=== PATIENT | male | born 1995 | race Caucasian/White ===

== ENCOUNTER 2017-06-14 20:21 | Emergency (ER) | payer BC ==
[~2017-06-14] VITALS: Ht 175.3 cm; Wt 90.0 kg
[~2017-06-14 20:21] MED LIST: IBUP600T26 PO; ROBA750T3 PO
[2017-06-14 20:33] VITALS: BP 139/81; PULSE 76; RESP 18; TEMP 98.4; O2SAT 98
[2017-06-14] MEDS ORDERED: NEFA100 PO (23:09)
[2017-06-14] MEDS ORDERED: CLON1TAB PO (23:09)
[2017-06-14] MEDS ORDERED: DULO1CAP3 PO (23:09)
[2017-06-14] MEDS ORDERED: MELA5 PO (23:09)
--- NOTE | 2017-06-14 23:12 | RADRPT ---
EXAM DATE/TIME: 06/14/2017 22:24 [place] COMPARISON: No previous studies available for comparison. INDICATIONS : Testicle pain. MEDICAL HISTORY : Testicle pain. Anxiety. SURGICAL HISTORY : None. ENCOUNTER: Initial ACUITY: 1 day PAIN SCORE: 7/10 LOCATION: Bilateral testicle. MEASUREMENTS: RIGHT TESTICLE: 4.8 x 1.4 x 2.2cm LEFT TESTICLE: 4.6 x 2.6 x 2.3cm FLOW: Yes FINDINGS: RIGHT TESTICLE: Homogeneous echotexture without intra or extratesticular mass. Blood flow is symmetric and within no rmal limits. No hydrocele or varicocele. Epididymis is within normal limits. LEFT TESTICLE: Homogeneous echotexture without intra or extratesticular mass. Blood flow is symmetric and within no rmal limits. No hydrocele or varicocele. Epididymis is within normal limits. SCROTUM: Within normal limits. CONCLUSION: Normal examination. Flash Brunner MD on June 14, 2017 at 23:10 Board Certified Radiologist. This report was verified electronically.
[2017-06-15] MEDS ORDERED: cefTRIAXone 250 MG VIAL IM ONE (00:15)
[2017-06-15] MEDS ORDERED: IBUPROFEN 600 MG TAB PO ONE (00:15)
[2017-06-15] MEDS ORDERED: AZITHROMYCIN PWD FOR SUSP 1 GM PACKET PO ONE (00:15)
[2017-06-15] MEDS ORDERED: LIDOCAINE HCL 1% 50 ML VIAL XX ONE (00:15)
[2017-06-15] MEDS ORDERED: LIDOCAINE HCL 1% 20 ML VIAL ONE (00:20)
[2017-06-15 00:24] LABS: BILIRUBIN, URINE NEG (NEG); BLOOD, URINE NEG (NEG); GLUCOSE,URINE NEG (NEG); KETONE, URINE NEG (NEG); NITRITE,URINE NEG (NEG); URINE COLOR LIGHT-YELLOW (YELLW/STRAW); URINE LEUKOCYTE ESTERASE NEG (NEG)
[2017-06-15] MEDS ORDERED: TYLE325T PO (01:01)
--- NOTE | 2017-06-15 01:01 | PD ---
HPI Chief Complaint: Pain: Acute or Chronic Time Seen by Provider: 22:50 Travel History International Travel<30 days: No Contact w/Intl Traveler<30days: No Traveled to known affect area: No History of Present Illness HPI 22yo M with no PMH presents to the ED with c/o bilateral testicular pain and penile pain for 1 week. Said he had protected sexual intercourse 1 week ago. Pt went to urgent care and was sent here for US. Denies any fever, chest pain, sob, n/v, abdominal pain, trauma to testicles, penile discharge. PFSH Past Medical History Anxiety: Yes Pneumonia: Yes Past Surgical History Surgical History: No Previous Surgery Social History Alcohol Use: No Tobacco Use: No Substance Use: No Allergies-Medications (Allergen,Severity, Reaction): Coded Allergies: No Known Allergies (Unverified Adverse Reaction, Unknown, 06/14/17) Reported Meds & Prescriptions Reported Meds & Active Scripts Active Reported Melatonin 5 Mg Tab 3 Mg PO HS Nefazodone (Nefazodone HCl) 100 Mg Tab 100 Mg PO BID Duloxetine DR (Duloxetine HCl) 60 Mg Capdr 60 Mg PO DAILY Clonazepam 1 Mg Tab 1 Mg PO TID Review of Systems Except as stated in HPI: all other systems reviewed are Neg Physical Exam Narrative GENERAL: 22yo M not in distress. SKIN: Focused skin assessment warm/dry. HEAD: Atraumatic. Normocephalic. CARDIOVASCULAR: Regular rate and rhythm. No murmur appreciated. RESPIRATORY: No accessory muscle use. Clear to auscultation. Breath sounds equal bilaterally. GASTROINTESTINAL: Abdomen soft, non-tender, nondistended. No rebound tenderness or guarding. : No edema or erythema of penile shaft. Bilateral testes descended. No edema. Mild ttp bilateral testes. No penile discharge on rash on shaft of penis. MUSCULOSKELETAL: No obvious deformities. No clubbing. No cyanosis. No edema. NEUROLOGICAL: Awake and alert. No obvious cranial nerve deficits. Motor grossly within normal limits. Normal speech. PSYCHIATRIC: Appropriate mood and affect; insight and judgment normal. Data Data Last Documented VS Vital Signs Date Time Temp Pulse Resp B/P (MAP) Pulse Ox O2 Delivery O2 Flow Rate FiO2 06/14/17 20:33 98.4 76 18 139/81 (100) 98 Orders Orders Us Testicles W Doppler (06/14/17 ) Urinalysis - C+S If Indicated (06/15/17 00:03) Gc And Chlamydia Pcr (06/15/17 00:03) Azithromycin Powd Pack (Zithromax Powd P (06/15/17 00:15) Ceftriaxone Inj (Rocephin Inj) (06/15/17 00:15) Lidocaine 1% Inj (50 Ml) (Xylocaine 1% I (06/15/17 00:15) Ibuprofen (Motrin) (06/15/17 00:15) Lidocaine 1% Inj (Xylocaine 1% Inj) (06/15/17 00:20) Labs Laboratory Tests Test 06/15/17 00:15 Urine Color LIGHT-YELLOW Urine Turbidity CLEAR Urine pH 7.0 Urine Specific [place] 1.009 Urine Protein NEG mg/dL Urine Glucose (UA) NEG mg/dL Urine Ketones NEG mg/dL Urine Occult Blood NEG Urine Nitrite NEG Urine Bilirubin NEG Urine Urobilinogen LESS THAN 2.0 MG/DL Urine Leukocyte Esterase NEG Urine WBC 1 /hpf Microscopic Urinalysis Comment CULT NOT INDICATED MDM Medical Decision Making Medical Screen Exam Complete: Yes Emergency Medical Condition: Yes Differential Diagnosis STI vs. testicular torsion (less likely) vs. epididymitis Narrative Course 22yo very well appearing male here with c/o mild testicular pain and penile pain for 1 week. Pt is worry because he had sex with new person a week ago but said he used protection. Exam is unremarkable but pt wants to be empirically treated for GC/chlamydia so given ceftriaxone with lidocaine and azithromycin. US bilateral testes showed normal blood blood in bilateral testes and no acute abnormality. Pt given ibuprofen with improvement of pain. UA negative. Return precautions given. Diagnosis Primary Impression: Penile pain Patient Instructions: General Instructions Departure Forms: Tests/Procedures Additional Instructions: Please follow up with your primary care physician in 3-7 days. Return to the ED if symptoms worsen. Med/Other Pt SpecificInfo: Prescription(s) given Scripts Acetaminophen (Tylenol) 325 Mg Tab 650 MG PO Q6H Y for PAIN SCALE 1 TO 4, #20 TAB 0 Refills Prov: Leena Salomon DO 06/15/17 Disposition: 01 DISCHARGE HOME Condition: Stable Leena Salomon DO June 15, 2017 01:01
== END 2017-06-15 01:16 | disposition home or self-care (01) ==
LOC: NEPD 20:21
DX: N48.89 Other specified disorders of penis (principal); F41.9 Anxiety disorder, unspecified; Z79.899 Other long term (current) drug therapy
CPT/HCPCS: 76870; 81001; 87491; 87591; 93975; 96372; 99284; J0696